=== PATIENT | male | born 1985 | race Caucasian/White ===

== ENCOUNTER 2017-07-13 19:16 | Emergency (ER) | payer OTHER ==
[2017-07-13 19:23] VITALS: BP 144/71
[2017-07-13] MEDS ORDERED: DEXAMETHASONE 10 MG/ML VIAL PO STA (20:13)
--- NOTE | 2017-07-13 20:16 | ED Physician Documentation ---
PD HPI HEENT - Stated complaint Stated Complaint: THROAT PAIN - Chief complaint Chief Complaint: Heent - History obtained from History obtained from: Patient - History of Present Illness Timing - onset: How many days ago (6) Timing - duration: Days Timing - details: Gradual onset Pain level now: 4 Location: Right ear, Throat Worsens: Swalllowing Associated symptoms: No: Fever, Congestion, Unable to swallow, Cough Similar symptoms before: Has not had sx before Recently seen: [facility] ([facility]) - Additional information Additional information: c/o sore throat x 6 days, T+R from [facility] yesterday, rx ibuprofen after strep swab performed; patient does not know results, says he was told he would be called with results. He presents at this time due to right ear pain since this morning that is worse with swallowing. Review of Systems Constitutional: denies: Fever, Chills, Sweats Ears: reports: Ear pain Throat: reports: Sore throat Respiratory: denies: Cough PD PAST MEDICAL HISTORY - Past Medical History Past Medical History: No - Past Surgical History Past Surgical History: No - Present Medications Home Medications: Ambulatory Orders Medication Instructions Recorded Confirmed No Known Home Medications [No 07/13/17 07/13/17 Known Home Medications] - Allergies Allergies/Adverse Reactions: Allergies Allergy/AdvReac Type Severity Reaction Status Date / Time No Known Drug Allergies Allergy Verified 07/13/17 19:23 - Social History Does the pt smoke?: No Smoking Status: Never smoker Does the pt drink ETOH?: No Does the pt have substance abuse?: No - Immunizations Immunizations are current?: Yes - POLST Patient has POLST: No PD ED PE NORMAL - Vitals Vital signs reviewed: Yes - General General: Alert and oriented X 3, No acute distress, Well developed/nourished - HEENT HEENT: Ears normal - Neck Neck: Supple, no meningeal sign PD ED PE EXPANDED - HEENT HEENT: Tonsillar exudate (right) Results - Vitals Vitals: Vital Signs - 24 hr 07/13/17 19:20 Temperature 36.9 C Heart Rate 68 Respiratory 16 Rate Blood Pressure 144/71 H O2 Saturation 100 Oxygen O2 Source Room air - Labs Labs: Laboratory Tests 07/13/17 20:16 Group A Strep Rapid Negative PD MEDICAL DECISION MAKING - ED course Complexity details: reviewed results, re-evaluated patient, considered differential, d/w patient Departure - Departure Disposition: 01 Home, Self Care Clinical Impression: Sore throat, Serous otitis media Condition: Good Instructions: ED Otitis Media Serous Adult, ED Pharyngitis Viral Report Pending Follow-Up: WILBER ORTEGA MD [Primary Care Provider] -
== END 2017-07-13 21:05 | disposition home or self-care (01) ==
LOC: ED 19:16
DX: J02.9 Acute pharyngitis, unspecified (principal); H65.90 Unspecified nonsuppurative otitis media, unspecified ear
CPT/HCPCS: 87070; 87430; 99283

== ENCOUNTER 2018-01-18 18:20 | Outpatient (CLI) | payer OTHER | END 2018-01-18 18:21 | disposition EMS.NT | LOC: EMS 18:20 | PROVIDERS: ATTEND Surgery | DX: R11.2 Nausea with vomiting, unspecified (principal); R19.7 Diarrhea, unspecified ==

== ENCOUNTER 2018-01-18 18:59 | Emergency (ER) | payer OTHER ==
[2018-01-18] MEDS ORDERED: SODIUM CHLORIDE 0.9% 1,000 ML IV ONE (19:18)
[2018-01-18] MEDS ORDERED: LOPERAMIDE 2 MG CAPSULE PO STA (19:18)
[2018-01-18] MEDS ORDERED: ONDANSETRON 4 MG/2 ML VIAL IVP STA (19:18)
--- NOTE | 2018-01-18 19:21 | ED Physician Documentation ---
History of Present Illness - Stated complaint Stated Complaint: TIRED,DIZZY - Chief complaint Chief Complaint: General - History obtained from History obtained from: Patient - History of Present Illness Timing: Last night (32-year-old gentleman, active duty in the [employer]. After breathing exhaust fumes last night he became abruptly ill with nausea, vomiting, lightheadedness that is worse if he turns his head and diarrhea. No blood from either end. No known sick contacts. No abdominal pain or fevers.) Review of Systems Constitutional: reports: Fatigue. denies: Fever, Chills Cardiac: denies: Chest pain / pressure, Palpitations Respiratory: denies: Dyspnea, Cough GI: reports: Nausea, Vomiting, Diarrhea. denies: Abdominal Pain PD PAST MEDICAL HISTORY - Past Medical History Cardiovascular: None Respiratory: None Neuro: None Endocrine/Autoimmune: None GI: None : None HEENT: None Psych: None Musculoskeletal: None Derm: None - Past Surgical History Past Surgical History: No - Present Medications Home Medications: Ambulatory Orders Medication Instructions Recorded Confirmed Loperamide [Imodium] 2 mg PO QID PRN #10 capsule 01/18/18 Ondansetron Odt [Zofran] 4 mg TL Q6H PRN #10 tablet 01/18/18 - Allergies Allergies/Adverse Reactions: Allergies Allergy/AdvReac Type Severity Reaction Status Date / Time No Known Drug Allergies Allergy Verified 01/18/18 19:14 - Social History Does the pt smoke?: No Smoking Status: Never smoker Does the pt drink ETOH?: No Does the pt have substance abuse?: No - Immunizations Immunizations are current?: Yes - POLST Patient has POLST: No PD ED PE NORMAL - Vitals Vital signs reviewed: Yes - General General: Alert and oriented X 3, Other (uncomfortable) - HEENT HEENT: PERRL, EOMI, Pharynx benign - Cardiac Cardiac: RRR, No murmur - Respiratory Respiratory: No respiratory distress, Clear bilaterally - Abdomen Abdomen: Normal bowel sounds, Soft, Non tender - Derm Derm: Normal color, Warm and dry - Neuro Neuro: Alert and oriented X 3, Normal speech - Psych Psych: Normal mood, Normal affect Results - Vitals Vitals: Vital Signs - 24 hr 01/18/18 19:03 Temperature 37.1 C Heart Rate 90 Respiratory 14 Rate Blood Pressure 131/81 H O2 Saturation 95 Oxygen O2 Source Room air - Labs Labs: Laboratory Tests 01/18/18 01/18/18 01/18/18 17:20 17:20 19:53 WBC 6.7 RBC 5.10 Hgb 15.3 Hct 43.9 MCV 86.1 MCH 30.0 MCHC 34.8 RDW 12.5 Plt Count 168 MPV 8.0 Neut # (Auto) 5.6 Lymph # (Auto) 0.7 L Mcdonough # (Auto) 0.3 Eos # (Auto) 0.0 Baso # (Auto) 0.0 Absolute Nucleated RBC 0.00 Nucleated RBC % 0.0 VBG Total Hgb 15.2 VBG Oxyhemoglobin 44 L VBG Carboxyhemoglobin 1.7 H VBG Methemoglobin 0.2 Sodium 134 L Potassium 3.3 L Chloride 102 Carbon Dioxide 26 Anion Gap 6.0 BUN 15 Creatinine 0.9 Estimated GFR (MDRD) 97 Glucose 128 H Calcium 8.4 L Total Bilirubin 0.8 AST 26 ALT 52 Alkaline Phosphatase 81 Total Protein 7.1 Albumin 4.2 Globulin 2.9 Albumin/Globulin Ratio 1.4 Lipase 26 PD MEDICAL DECISION MAKING - ED course ED course: 32-year-old gentleman with clinical syndrome consistent with gastroenteritis. Feeling completely resolved after IV fluids, Zofran and Imodium. Potassium was slightly low and repleted orally. Given the history of exhaust exposure carbon monoxide level was done and Unremarkable. Departure - Departure Disposition: 01 Home, Self Care Clinical Impression: Hypokalemia, Dizziness Vomiting Qualifiers: Vomiting type: unspecified Vomiting Intractability: non-intractable Nausea presence: with nausea Qualified Code(s): R11.2 - Nausea with vomiting, unspecified Diarrhea Qualifiers: Diarrhea type: presumed infectious Qualified Code(s): R19.7 - Diarrhea, unspecified Condition: Good Record reviewed to determine appropriate education?: Yes Instructions: ED Diarrhea Viral Prescriptions: Loperamide [Imodium] 2 mg PO QID PRN #10 capsule PRN Reason: Diarrhea Ondansetron Odt [Zofran] 4 mg TL Q6H PRN #10 tablet PRN Reason: Nausea / Vomiting Comments: If not better by tomorrow afternoon please return for reevaluation. Sooner if worse.
[2018-01-18 19:36] LABS: BASOPHILS % (AUTO) 0.4 %; EOSINOPHILS % (AUTO) 0.1 %; HGB - HEMOGLOBIN 15.3 g/dL (14.0-18.0); LYMPHOCYTES # (AUTO) 0.7 10^3/uL (1.5-3.5); MEAN CORPUSCULAR HGB CONC 34.8 g/dL (32.0-36.0); MEAN CORPUSCULAR VOLUME 86.1 fL (80.0-94.0); MONOCYTES # (AUTO) 0.3 10^3/uL (0.0-1.0); MONOCYTES % (AUTO) 5.1 %; NEUTROPHILS # (AUTO) 5.6 10^3/uL (1.5-6.6); NEUTROPHILS % (AUTO) 83.4 %; PLT - PLATELET COUNT 168 10^3/uL (130-450); RED CELL DISTRIBUTION WIDTH 12.5 % (12.0-15.0); WHITE BLOOD COUNT 6.7 x10^3/uL (4.8-10.8)
[2018-01-18 19:49] LABS: ALBUMIN 4.2 g/dL (3.2-5.5); ALBUMIN/GLOBULIN RATIO 1.4 (1.0-2.2); BILIRUBIN,TOTAL 0.8 mg/dL (0.2-1.0); CALCIUM 8.4 mg/dL (8.5-10.3); CREATININE 0.9 mg/dL (0.6-1.2); TOTAL PROTEIN 7.1 g/dL (6.7-8.2)
[2018-01-18] MEDS ORDERED: POTASSIUM BICARB 25 MEQ TABLET PO STA (20:08)
[2018-01-18] MEDS ORDERED: ONDANSETRON ODT 4 MG Prepack 2 TL STA (20:35)
[2018-01-18 20:47] VITALS: BP 127/77
== END 2018-01-18 20:48 | disposition home or self-care (01) ==
LOC: ED 18:59
DX: R42 Dizziness and giddiness (principal); E87.6 Hypokalemia; R11.2 Nausea with vomiting, unspecified; R19.7 Diarrhea, unspecified
CPT/HCPCS: 36415; 80053; 82375; 83690; 85025; 96374; 99283; A9270